=== PATIENT | male | born 1975 | race Caucasian/White ===

== ENCOUNTER 2020-03-11 08:21 | Emergency (ER) | payer SELFPAY ==
[~2020-03-11] VITALS: Ht 182.9 cm; Wt 77.3 kg
[2020-03-11 08:27] VITALS: TEMP 97.9
[2020-03-11] MEDS ORDERED: CEFTIN500 MG PO (09:52)
[2020-03-11] MEDS ORDERED: BACTRIM DS 8001 TAB PO (09:52)
[2020-03-11] MEDS ORDERED: MOTRIN 400400 MG/TAB PO (09:52)
[2020-03-11 10:27] VITALS: BP 112/68; PULSE 74
== END 2020-03-11 10:29 | disposition home or self-care (01) ==
LOC: COL.ER 08:21
DX: H66.91 Otitis media, unspecified, right ear (principal); Z88.0 Allergy status to penicillin